=== PATIENT | male | born 1950 | race Caucasian/White ===

== ENCOUNTER 2023-08-25 10:43 | Outpatient (AMB) | payer MEDICARE, MEDICAID, SELFPAY ==
--- NOTE | 2023-08-25 10:50 | MHC.OFFVIS ---
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 Pt reports this started about 5 years ago. He c/o tremors of di UE, primarily the left. Group Account Director Required: No Allergies cortisone Allergy (Mild, Verified 08/25/23 10:53) Hives Medication List - Last Reconciled 08/25/23 by Aurelia Castano MD albuterol sulfate 90 mcg/actuation 2 puffs inhalation Q6H PRN clotrimazole 1% 1 appl topical BID dulaglutide (Trulicity) 1.5 mg subcut QWEEK glipizide 10 mg PO DAILY hydrochlorothiazide 25 mg PO DAILY hydrocortisone 1% (Anti-Itch (hydrocortisone)) 1 appl topical BID PRN loratadine (Claritin) 10 mg PO DAILY losartan 50 mg PO DAILY metformin 500 mg PO DAILY simvastatin 40 mg PO BEDTIME tacrolimus 0.1% 1 appl topical BID HPI HPI Comments History of Present Illness Details 72y/o left handed male with Diabetes comes for evaluation of left upper extremity tremors. It started about 3-4 years ago and is usually with action.he has mild tremors in his right hand but not as bad as left. He denies any rest tremors. He has trouble pouring coffee, drinking liquids, eating etc. he tries to use his right hand. He denies neck pain, numbness or tingling in his hands.He had a minor tear in his left shoulder. No family h/o tremors. No voice tremors. [facility] Medical History (Updated 08/25/23 @ 11:27 by Aurelia Castano MD) Numbness and tingling in left hand Coarse tremors NEVA on CPAP Asthma Arthritis HTN (hypertension) Hyperlipidemia Allergic rhinitis Diabetes Diabetic neuropathy Surgical History H/O hernia repair Hx of cholecystectomy Family History Father Diabetes Social History Alcohol intake: never Patient Tobacco Use Status: Current everyday Tobacco user Tobacco use type: Cigar Physical Exam Vital Signs: Last Vital Signs Pulse 99 08/25/23 10:58 Resp 16 08/25/23 10:58 BP 128/70 08/25/23 10:58 Pulse Ox 96 08/25/23 10:58 Oxygen Delivery Method Room Air 08/25/23 10:58 BMI result Body Mass Index 49.0 Const General: cooperative, healthy appearing and comfortable Nutritional Appearance: obese Orientation/consciousness: patient oriented x3 Neuro Other: mild left hand postural and action tremors no cog wheel rigidty FFM and foot taps - normal General: patient oriented x3, tone normal, moves all extremities and no focal motor deficits Cranial nerves: Yes Bilaterally intact EOM present, Yes Nystagmus not present, Yes Normal facial strength present, Yes Midline tongue present and Yes Symmetric palate elevation present Cognition (Neuro): normal cognition Gait exam (Neuro): Antalgic gait present Motor exam (neuro): 5/5 motor strength present throughout and Normal motor muscle tone present throughout Deep tendon reflexes (DTR's): Right triceps reflex intensity grade: 0, Left triceps reflex intensity grade: 0, Rt Biceps (C5, C6): 1+, Left biceps reflex intensity grade: 1+, Right brachioradialis reflex intensity grade: 0, Left brachioradialis reflex intensity grade: 0, Right patellar reflex intensity grade: 1+, Left patellar reflex intensity grade: 1+, Right ankle reflex intensity grade: 0 and Left ankle reflex intensity grade: 0 Coordination: [id number] test normal Assessment & Plan Assessment & Plan (1) Coarse tremors: Comment: essential tremors? related to neuropathy Code(s): G25.2 - Other specified forms of tremor Plan I will evaluate him with EMG NCS and also refer to OT for hand strengthening Will consider gabapentin or primidone. Orders: Orders NE nerve conduction velocity Today G25.2 - Other specified forms of tremor, R20.0 - Anesthesia of skin, R20.2 - Paresthesia of skin OT Evaluation and Treatment Today G25.2 - Other specified forms of tremor NE electromyogram (EMG) Today G25.2 - Other specified forms of tremor, R20.0 - Anesthesia of skin, R20.2 - Paresthesia of skin Coding Level of Care Code New Pt Level 4 (41541) Diagnoses Coarse tremors G25.2
[2023-08-25 10:58] VITALS: BP 128/70; PULSE 99; RESP 16; O2SAT 96; BMI 49.0
== END 2023-08-25 11:33 | disposition home or self-care (01) ==
PROVIDERS: PCP Internal Medicine; Visit Provider Psychiatry & Neurology Neurology
DX: G25.2 Other specified forms of tremor (principal)
CPT/HCPCS: 99204

== ENCOUNTER → 2023-08-25 10:43 | Outpatient (BNVA) | payer MEDICARE, MEDICAID, SELFPAY | PROVIDERS: PCP Internal Medicine; Visit Provider Psychiatry & Neurology Neurology | DX: G25.2 Other specified forms of tremor (principal) | CPT/HCPCS: 99202 ==

== ENCOUNTER 2023-09-23 10:17 | Outpatient (REF) | payer MEDICARE, MEDICAID, SELFPAY ==
--- NOTE | 2023-09-23 10:21 | EMG_ITS ---
Left median and ulnar motor and sensory studies were performed. Left radial sensory study was performed and paraspinal muscles were tested with a needle with some limb muscles. IMPRESSION: Mild to moderate left median neuropathy across carpal tunnel. MD OBED Cardenas/SU / [id number]
== END 2023-09-23 10:18 | disposition home or self-care (01) ==
LOC: HO.NEURO 10:17
PROVIDERS: PCP Internal Medicine; Visit Provider Psychiatry & Neurology Neurology
DX: G25.2 Other specified forms of tremor (principal); R20.0 Anesthesia of skin; R20.2 Paresthesia of skin
CPT/HCPCS: 95886; 95909

== ENCOUNTER 2023-11-25 10:01 | Outpatient (AMB) | payer MEDICARE, MEDICAID, SELFPAY ==
[2023-11-25 10:07] VITALS: BMI 48.4
--- NOTE | 2023-11-25 10:07 | A.OFFVIS_ITS ---
Vital Signs 11/25/23 10:07 Height 5 ft 6 in Weight 300 lb BMI 48.4 Intake Visit Reasons: N/P LT hand CTS/ wants braces no surgery EMG done Intake Note: Basim is a 72 yr old male who presents today as a new pt for LT hand CTS. Pt reports only wanting to get a new brace. Allergies cortisone Allergy (Mild, Verified 11/25/23 10:08) Hives HPI HPI N/P LT hand CTS/ wants braces no surgery EMG done : Details: Patient is a 72-year-old male who presents for evaluation of left carpal tunnel syndrome. 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 Patient reports he was given a brace at that time. Patient was referred for an EMG in September of 2023 due to tremor and left hand, and it was found that he still had mild to moderate carpal tunnel syndrome on the left. Patient reports that he made an appointment to get a brace, as this is how he was treated last time. He reports that his numbness and tingling only occur when he has been working with his hands for relatively long periods of time, and that symptoms do not occur every day. Patient is not experiencing any nighttime symptoms at this time. He states that symptoms have improved dramatically since he retired. No other acute complaints at this time. [facility] Medical History (Updated 10/09/23 @ 07:55 by Aurelia Castano MD) Carpal tunnel syndrome of left wrist Numbness and tingling in left hand Coarse tremors NEVA on CPAP Asthma Arthritis HTN (hypertension) Hyperlipidemia Allergic rhinitis Diabetes Diabetic neuropathy Surgical History H/O hernia repair Hx of cholecystectomy Family History Father Diabetes Social History Alcohol intake: never Patient Tobacco Use Status: Current everyday Tobacco user Tobacco use type: Cigar Review of Systems Const All systems reviewed & are unremarkable except as noted in HPI and below Physical Exam Vital Signs: BMI result Body Mass Index 48.4 Const Other: Patient is alert, oriented, cooperative, and in no acute distress HEENT Head: Yes normocephalic and Yes atraumatic Resp Effort & Inspection: normal respiratory effort and able to speak in complete sentences Cardio Jugular venous distension: no JVD Neuro General: gait normal Cognition (Neuro): normal cognition Extrem Other: Patient is alert, oriented, and in no acute distress. Neuro: Median, ulnar, radial nerves motor and sensory intact and sensation is normal to the tips of all digits. Vascular: Cap refill brisk Pain: No pain at this time ROM: Range of motion of the left hand is full and intact Patient able to make a closed fist Good finger cross Skin: No lacerations or abrasions. General: No ecchymosis, erythema, or evidence of infection. Good APB muscle belly firing on the left No evidence of thenar wasting Psych: Appears grossly normal Affect normal Attitude cooperative Psych Appearance: grossly normal Mental Status: mental status grossly normal Results Reviewed Results Reviewed: Nerve conduction study: IMPRESSION: Mild to moderate left median neuropathy across carpal tunnel. Assessment & Plan Assessment & Plan (1) Carpal tunnel syndrome of left wrist: Code(s): G56.02 - Carpal tunnel syndrome, left upper limb Category: Medical Plan 1. Carpal tunnel syndrome, left Symptoms intermittent, not daily, no nighttime symptoms At this time, patient is not interested in pursuing operative treatment of his carpal tunnel syndrome However, due to lack of nighttime symptoms, patient is not a candidate for a brace, as this is meant for relief of nighttime symptoms Patient understands this and is amenable to this plan Patient is educated about the risks of not signing up for surgery, namely loss of sensation and thenar wasting Patient states that he will call the office if his symptoms become intermittent, but daily, and he will be interested in pursuing surgical treatment if that occurs Patient will follow-up p.r.n. in clinic for any worsening of current symptoms Coding Level of Care Code New Pt Level 3 (68542) Diagnoses Carpal tunnel syndrome of left wrist G56.02
== END 2023-11-25 10:25 | disposition home or self-care (01) ==
PROVIDERS: PCP Internal Medicine
DX: G56.02 Carpal tunnel syndrome, left upper limb (principal)
CPT/HCPCS: 99203

== ENCOUNTER → 2023-11-25 10:01 | Outpatient (BNVA) | payer MEDICARE, MEDICAID, SELFPAY | PROVIDERS: PCP Internal Medicine | DX: G56.02 Carpal tunnel syndrome, left upper limb (principal) | CPT/HCPCS: 99202 ==

== ENCOUNTER 2024-02-02 11:09 | Outpatient (AMB) | payer MEDICARE, MEDICAID, SELFPAY ==
--- NOTE | 2024-02-02 11:14 | MHC.OFFVIS ---
Vital Signs 02/02/24 11:15 Height 5 ft 6 in Weight 303 lb 4 oz BMI 48.9 BP 144/68 H Blood Pressure Location Rt brachial Position Sitting Respiration 17 Pulse 93 Pulse Source Pulse Oximeter Pulse Oximetry (%) 97 Oxygen Delivery Method Room Air Intake Visit Reasons: 5 month F/U Intake Note: Pt presents to the office for 5 month follow up for coarse tremors. 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 He denies any rest tremors. He has trouble pouring coffee, drinking liquids, eating etc. he tries to use his right hand. He denies neck pain, numbness or tingling in his hands.He had a minor tear in his left shoulder. No family h/o tremors. No voice tremors. He has h/o sleep apnea but not on CPAP and declines a repeat study [facility] Medical History Carpal tunnel syndrome of left wrist Numbness and tingling in left hand Coarse tremors NEVA on CPAP Asthma Arthritis HTN (hypertension) Hyperlipidemia Allergic rhinitis Diabetes Diabetic neuropathy Surgical History H/O hernia repair Hx of cholecystectomy Family History Father Diabetes Social History Alcohol intake: never Patient Tobacco Use Status: Current everyday Tobacco user Tobacco use type: Cigar Physical Exam Vital Signs: Last Vital Signs Pulse 93 02/02/24 11:15 Resp 17 02/02/24 11:15 BP 144/68 H 02/02/24 11:15 Pulse Ox 97 02/02/24 11:15 Oxygen Delivery Method Room Air 02/02/24 11:15 BMI result Body Mass Index 48.9 Const General: cooperative, healthy appearing and comfortable Nutritional Appearance: obese Orientation/consciousness: patient oriented x3 Neuro Other: mild left hand postural and action tremors no cog wheel rigidty FFM and foot taps - normal General: patient oriented x3, tone normal, moves all extremities and no focal motor deficits Cranial nerves: Yes Bilaterally intact EOM present, Yes Nystagmus not present, Yes Normal facial strength present, Yes Midline tongue present and Yes Symmetric palate elevation present Cognition (Neuro): normal cognition Gait exam (Neuro): Antalgic gait present Motor exam (neuro): 5/5 motor strength present throughout and Normal motor muscle tone present throughout Coordination: [id number] test normal Assessment & Plan Assessment & Plan (1) Coarse tremors: Comment: essential tremors? related to neuropathy Code(s): G25.2 - Other specified forms of tremor Category: Medical Plan F/U with hand surgery as needed Will consider gabapentin or primidone Coding Level of Care Code Est Pt Level 4 (83722) Diagnoses Coarse tremors G25.2
[2024-02-02 11:15] VITALS: BP 144/68; PULSE 93; RESP 17; O2SAT 97; BMI 48.9
== END 2024-02-02 11:50 | disposition home or self-care (01) ==
PROVIDERS: PCP Internal Medicine; Visit Provider Psychiatry & Neurology Neurology
DX: G25.2 Other specified forms of tremor (principal)
CPT/HCPCS: 99214

== ENCOUNTER → 2024-02-02 11:09 | Outpatient (BNVA) | payer MEDICARE, MEDICAID, SELFPAY | PROVIDERS: PCP Internal Medicine; Visit Provider Psychiatry & Neurology Neurology | DX: G25.2 Other specified forms of tremor (principal) | CPT/HCPCS: 99212 ==